=== PATIENT | female | born 1985 | race Two or more races ===

== ENCOUNTER 2017-03-03 07:38 | Outpatient (CLI) | payer MEDICAID ==
[2017-03-03 08:30] LABS: APPEARANCE,URINE CLEAR; BILIRUBIN,URINE NEGATIVE (NEGATIVE); GLUCOSE, URINE NEGATIVE (NEGATIVE); KETONES,URINE NEGATIVE (NEGATIVE); LEUKOCYTE ESTERASE,URINE NEGATIVE (NEGATIVE); NITRITE,URINE NEGATIVE (NEGATIVE); PROTEIN,URINE NEGATIVE (NEGATIVE); UROBILINOGEN,URINE NEGATIVE mg/dL (<2.0)
[2017-03-03 08:45] LABS: URINE BARBITURATES SCREEN NEGATIVE; URINE METHADONE SCREEN NEGATIVE; URINE OPIATES LOW NEGATIVE; URINE PHENCYCLIDINE SCREEN NEGATIVE
--- NOTE | 2017-03-03 10:04 | RADIOLOGY REPORT (SQ) ---
EXAM DESCRIPTION: U/S OB 14+ TRNABD 1GES W/O DOP COMPLETED DATE/TIME: 03/03/2017 9:53 am REASON FOR STUDY: complete OB, CL, dates, corrine scan, placenta loc COMPARISON: None. TECHNIQUE: Static and Dynamic grayscale imaging performed of gravid uterus using transabdominal appr oach. Additional selected color Doppler and spectral images recorded. All stored on PACS. LIMITATIONS: None. FINDINGS: EGA: 21 week 3 day TERRY: 07/11/2017 EFW: 435 grams PERCENTILE: Not calculated. IAM: Maximum vertical pocket 5.3 cm. PLACENTA: Posterior low lying without lily previa. Approximately 2.4 cm from the cervical os. No a bruption evident. PRESENTATION: Breech ANATOMY: HEART RATE: 127 beats per minute. FOUR CHAMBER HEART: Visualized. THREE VESSEL CORD: Yes. CORD INSERTION: Visualized. KIDNEYS AND BLADDER: Not well demonstrated. No lily hydronephrosis evident. STOMACH: Visualized. Appears normal. SPINE: Normal as visualized. BRAIN AND LATERAL VENTRICLES: Visualized. Appear normal. OTHER: No other significant finding. MATERNAL ADNEXA: Maternal ovaries not visualized. CERVICAL LENGTH: 3.3 cm. Closed. OTHER: No other significant finding. IMPRESSION: LIVING INTRAUTERINE . ESTIMATED GESTATIONAL AGE 21 weeks 3 days. No visualized anomalies allowing for limited assessment of the kidneys. No previa, placenta looks tenisha rderline low. Trimester of : Second trimester - 13 weeks 1 day to 27 weeks 6 days. TECHNICAL DOCUMENTATION: JOB ID: [id number] [employer]- All Rights Reserved
== END 2017-03-03 10:18 | disposition home or self-care (01) ==
LOC: LC 07:38
PROVIDERS: ATTEND Obstetrics & Gynecology
PROC: 4A1HXCZ Monitoring of Products of Conception, Cardiac Rate, External Approach (ICD-10-PCS; principal; 2017-03-03)
DX: O44.42 Low lying placenta NOS or without hemorrhage, second trimester (principal); Z3A.21 21 weeks gestation of pregnancy
CPT/HCPCS: 76805; 80307; 81001

== ENCOUNTER 2017-05-27 08:51 | Outpatient (CLI) | payer MEDICAID ==
[2017-05-27 09:33] LABS: APPEARANCE,URINE SLIGHTLY-CLOUDY; BILIRUBIN,URINE NEGATIVE (NEGATIVE); GLUCOSE, URINE NEGATIVE (NEGATIVE); KETONES,URINE NEGATIVE (NEGATIVE); LEUKOCYTE ESTERASE,URINE MODERATE (NEGATIVE); NITRITE,URINE NEGATIVE (NEGATIVE); PROTEIN,URINE NEGATIVE (NEGATIVE); URINE SPECIFIC GRAVITY 1.011; UROBILINOGEN,URINE NEGATIVE mg/dL (<2.0)
[2017-05-27 09:36] LABS: AMNISURE (ROM) NEGATIVE (NEGATIVE)
[2017-05-27 09:48] LABS: URINE BARBITURATES SCREEN NEGATIVE; URINE METHADONE SCREEN NEGATIVE; URINE OPIATES LOW NEGATIVE; URINE PHENCYCLIDINE SCREEN NEGATIVE
[2017-05-27 11:55] LABS: CHLAM PCR NOT DETECTED (NOT DETECT)
== END 2017-05-27 14:00 | disposition home or self-care (01) ==
LOC: LC 08:51
PROVIDERS: ATTEND Student in an Organized Health Care Education/Training Program
PROC: 4A1HXCZ Monitoring of Products of Conception, Cardiac Rate, External Approach (ICD-10-PCS; principal; 2017-05-27)
DX: O47.03 False labor before 37 completed weeks of gestation, third trimester (principal); Z3A.33 33 weeks gestation of pregnancy
CPT/HCPCS: 59025; 84112; 81001; 80307; 87491; 87591; G0480 ×2

== ENCOUNTER 2017-08-15 13:48 | Emergency (ER) | payer OTHER, MEDICAID ==
[2017-08-15] MEDS ORDERED: KETOROLAC TROMETHAMINE 10 MG TABLET PO ONE (14:59)
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
[2017-08-15 15:40] VITALS: BP 117/68
== END 2017-08-15 15:59 | disposition home or self-care (01) ==
LOC: ER 13:48
DX: V49.40XA Driver injured in collision with unspecified motor vehicles in traffic accident, initial encounter (principal); M62.830 Muscle spasm of back; S29.012A Strain of muscle and tendon of back wall of thorax, initial encounter
CPT/HCPCS: 99283; J3490

== ENCOUNTER 2018-08-01 02:52 | Outpatient (CLI) | payer MEDICAID ==
[2018-08-01] MEDS ORDERED: ACETAMINOPHEN 325 MG TABLET ONE (03:36)
[2018-08-01 03:39] LABS: APPEARANCE,URINE CLOUDY; BILIRUBIN,URINE NEGATIVE (NEGATIVE); COLOR,URINE YELLOW; GLUCOSE, URINE NEGATIVE (NEGATIVE); KETONES,URINE NEGATIVE (NEGATIVE); LEUKOCYTE ESTERASE,URINE NEGATIVE (NEGATIVE); NITRITE,URINE NEGATIVE (NEGATIVE); PROTEIN,URINE NEGATIVE (NEGATIVE); URINE SPECIFIC GRAVITY 1.011; UROBILINOGEN,URINE NEGATIVE mg/dL (<2.0)
[2018-08-01 03:49] LABS: URINE AMPHETAMINES SCREEN NEGATIVE; URINE BARBITURATES SCREEN NEGATIVE; URINE BENZODIAZEPINES SCREEN NEGATIVE; URINE COCAINE SCREEN NEGATIVE; URINE METHADONE SCREEN NEGATIVE; URINE PHENCYCLIDINE SCREEN NEGATIVE
[2018-08-01 03:54] LABS: URINE MARIJUANA (THC) SCREEN UNCONFIRMED POSITIVE
[2018-08-01] MEDS ORDERED: CEFTRIAXONE INJ 1000 MG VIAL IM ONE (04:08)
[2018-08-01] MEDS ORDERED: LIDOCAINE 1% INJ-PF (10 MG/ML) 30 ML SDV INJ ONE (04:08)
[2018-08-01] MEDS ORDERED: CEFTRIAXONE INJ 1000 MG VIAL ONE (04:14)
[2018-08-01] MEDS ORDERED: LIDOCAINE 1% INJ-PF (10 MG/ML) 30 ML SDV ONE (04:14)
--- NOTE | 2018-08-01 05:24 | Non Stress Test Report ---
Non Stress Test Datetime Report Generated by CPN: 08/01/2018 05:24 DEMOGRAPHIC Test Number: 1 EGA NST: 34.4 INDICATION Indication for Study: Ordered by Provider URINE RESULTS Urine Protein, NST: Negative Urine Ketones - NST: Negative Urine Glucose - NST: Negative Urine Blood - NST: Positive MONITORING Monitor Explained: Monitor Explained; Test Explained; Patient Verbalized Understanding Time on Monitor: 08/01/2018 04:30 Time off Monitor: 08/01/2018 05:05 NST Duration: 35 NST INTERVENTIONS NST Interventions: PO Hydration; Reposition Patient; Vibroacoustic Stim Physician Notified NST: Dr. Gamboa BABY A: [id number] BABY A Movement : Present Contraction Frequency : x2 FHR Baseline : 135 Accelerations : 15X15 Decelerations : None Variability : Moderate 6-25bpm NST Review: Meets Criteria for Reactive NST NST Review and Verified By : JOJO Estrella NST Results: Reactive NST REPORT Report Trigger: Send Report
== END 2018-08-01 05:13 | disposition home or self-care (01) ==
LOC: ER 02:52 → LC 05:13
PROVIDERS: ATTEND Obstetrics & Gynecology Gynecology
PROC: 4A1HXCZ Monitoring of Products of Conception, Cardiac Rate, External Approach (ICD-10-PCS; principal; 2018-08-01)
DX: O47.03 False labor before 37 completed weeks of gestation, third trimester (principal); O23.43 Unspecified infection of urinary tract in pregnancy, third trimester; Z3A.34 34 weeks gestation of pregnancy
CPT/HCPCS: 59025; 81001; 80307; G0480 ×2; J3490 ×2; J0696; 80349

== ENCOUNTER 2018-08-03 08:16 | Inpatient (IN) | payer MEDICAID ==
[2018-08-03] MEDS ORDERED: ONDANSETRON HCL INJ/PF 4 MG/2 ML SDV IV PRN (08:55)
[2018-08-03 09:16] LABS: APPEARANCE,URINE SLIGHTLY-CLOUDY; BILIRUBIN,URINE NEGATIVE (NEGATIVE); COLOR,URINE YELLOW; GLUCOSE, URINE NEGATIVE (NEGATIVE); KETONES,URINE 20 mg/dL (NEGATIVE); LEUKOCYTE ESTERASE,URINE NEGATIVE (NEGATIVE); NITRITE,URINE NEGATIVE (NEGATIVE); PROTEIN,URINE NEGATIVE (NEGATIVE); URINE SPECIFIC GRAVITY 1.011; UROBILINOGEN,URINE NEGATIVE mg/dL (<2.0)
[2018-08-03] MEDS ORDERED: PROMETHAZINE HCL INJ 25 MG/1 ML VIAL ONE (09:19)
[2018-08-03] MEDS ORDERED: CEFTRIAXONE INJ 1000 MG VIAL ONE (09:19)
[2018-08-03] MEDS ORDERED: NALBUPHINE HCL INJ 10 MG/1 ML AMPULE ONE (09:19)
[2018-08-03] MEDS ORDERED: NALBUPHINE HCL INJ 10 MG/1 ML AMPULE INJ ONE ×2 (09:25→09:26)
[2018-08-03] MEDS ORDERED: PROMETHAZINE HCL INJ 25 MG/1 ML VIAL IV ONE ×2 (09:25→09:27)
[2018-08-03 09:27] LABS: URINE AMPHETAMINES SCREEN NEGATIVE; URINE BARBITURATES SCREEN NEGATIVE; URINE BENZODIAZEPINES SCREEN NEGATIVE; URINE COCAINE SCREEN NEGATIVE; URINE METHADONE SCREEN NEGATIVE; URINE PHENCYCLIDINE SCREEN NEGATIVE
[2018-08-03 09:37] LABS: URINE MARIJUANA (THC) SCREEN UNCONFIRMED POSITIVE
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
[2018-08-03 10:46] LABS: HEMATOCRIT 29.1 % (36.0-47.0); HEMOGLOBIN 10.3 g/dL (12.0-15.5); MEAN CORPUSCULAR HEMOGLOBIN 33.4 pg (27.0-33.4); MEAN CORPUSCULAR HGB CONC 35.5 g/dL (32.0-36.0); MEAN CORPUSCULAR VOLUME 94 fl (80-97); PLATELET COUNT 264 10^3/uL (150-450); WHITE BLOOD COUNT 2.5 10^3/uL (4.0-10.5)
[2018-08-03 10:55] LABS: ALANINE AMINOTRANSFERASE 31 U/L (9-52); ALBUMIN 3.4 g/dL (3.5-5.0); ALKALINE PHOSPHATASE 159 U/L (38-126); ANION GAP 10 (5-19); ASPARTATE AMINO TRANSFERASE 34 U/L (14-36); BILIRUBIN,DIRECT 0.2 mg/dL (0.0-0.4); BILIRUBIN,TOTAL 0.4 mg/dL (0.2-1.3); BLOOD UREA NITROGEN 12 mg/dL (7-20); CALCIUM 8.5 mg/dL (8.4-10.2); CARBON DIOXIDE 21 mmol/L (22-30); CHLORIDE 104 mmol/L (98-107); GLUCOSE 77 mg/dL (75-110); SODIUM 135.3 mmol/L (137-145); TOTAL PROTEIN 6.4 g/dL (6.3-8.2)
[2018-08-03 11:09] LABS: ABSOLUTE LYMPHOCYTES# (MANUAL) 1.6 10^3/uL (0.5-4.7); ABSOLUTE MONOCYTES # (MANUAL) 0.5 10^3/uL (0.1-1.4); ABSOLUTE NEUTROPHILS# (MANUAL) 0.3 10^3/uL (1.7-8.2); BASOPHILS % (MANUAL) 0 % (0-2); EOSINOPHILS % (MANUAL) 3 % (0-6); MONOCYTES % (MANUAL) 19 % (3-13); SEGMENTED NEUTROPHILS % (MAN) 13 % (42-78); TOTAL CELLS COUNTED 100
[2018-08-03 11:10] LABS: PLATELET COMMENT ADEQUATE; POLYCHROMASIA SLIGHT
[2018-08-03 11:11] LABS: LYMPHOCYTES % (MANUAL) 65 % (13-45)
[2018-08-03] MEDS: RINGERS SOLUTION,LACTATED 1,000 ML IV PRN ×2 (14:51→21:54)
[2018-08-03] MEDS: CEFTRIAXONE 1 GM/D5W RTU 1 GM/50 ML RTUPB IV SCH ×2 (14:52→21:54)
[2018-08-03] MEDS: ACETAMINOPHEN 325 MG TABLET PO PRN (17:39)
[2018-08-03] MEDS ORDERED: FAMOTIDINE 20 MG TABLET PO PRN (21:25)
[2018-08-03] MEDS: PROMETHAZINE HCL 25 MG TABLET PO PRN (21:57)
[2018-08-04] MEDS: ACETAMINOPHEN 325 MG TABLET PO PRN (00:11)
[2018-08-04] MEDS: OXYCODONE-ACETAMINOPHEN 5-325 MG TABLET PO PRN ×5 (00:50→23:46)
[2018-08-04] MEDS: RINGERS SOLUTION,LACTATED 1,000 ML IV PRN ×3 (06:11→23:49)
[2018-08-04] MEDS: PROMETHAZINE HCL 25 MG TABLET PO PRN ×3 (06:13→22:24)
[2018-08-04 06:24] LABS: HEMATOCRIT 28.9 % (36.0-47.0); HEMOGLOBIN 10.1 g/dL (12.0-15.5); MEAN CORPUSCULAR HEMOGLOBIN 32.9 pg (27.0-33.4); MEAN CORPUSCULAR HGB CONC 34.9 g/dL (32.0-36.0); MEAN CORPUSCULAR VOLUME 94 fl (80-97); PLATELET COUNT 248 10^3/uL (150-450); RED BLOOD COUNT 3.07 10^6/uL (3.72-5.28); RED CELL DISTRIBUTION WIDTH 13.4 % (11.5-14.0); WHITE BLOOD COUNT 3.1 10^3/uL (4.0-10.5)
[2018-08-04 07:00] LABS: ABSOLUTE LYMPHOCYTES# (MANUAL) 1.7 10^3/uL (0.5-4.7); ABSOLUTE NEUTROPHILS# (MANUAL) 0.3 10^3/uL (1.7-8.2); BASOPHILS % (MANUAL) 0 % (0-2); EOSINOPHILS % (MANUAL) 2 % (0-6); LYMPHOCYTES % (MANUAL) 56 % (13-45); MONOCYTES % (MANUAL) 31 % (3-13); SEGMENTED NEUTROPHILS % (MAN) 11 % (42-78); TOTAL CELLS COUNTED 100
[2018-08-04 07:04] LABS: OVALOCYTES SLIGHT; PLATELET COMMENT ADEQUATE; POIKILOCYTOSIS SLIGHT; TARGET CELLS SLIGHT
[2018-08-04] MEDS: CEFTRIAXONE 1 GM/D5W RTU 1 GM/50 ML RTUPB IV SCH ×2 (09:13→22:20)
[2018-08-04] MEDS ORDERED: PROMETHAZINE HCL 25 MG TABLET PO ONE (10:00)
--- NOTE | 2018-08-04 10:22 | PDOC PROGRESS REPORT ---
Subjective Progress Note for:: 08/04/18 Reason For Visit: UTI WITH @ 35 wks. Physical Exam - Physical Exam Vital Signs: Temp Pulse Resp BP Pulse Ox 97.6 F 86 16 116/75 100 08/04/18 07:46 08/04/18 07:46 08/04/18 07:46 08/04/18 07:46 08/04/18 07:46 Intake & Output 08/03/18 08/04/18 08/05/18 06:59 06:59 06:59 Intake Total 2231 Output Total 1350 Balance 881 Weight 53.3 kg General appearance: PRESENT: no acute distress, cooperative - no CVA tenderness at this time. - Obstetrical Exam Fundal Height: 3/u - 4/u Tender: No Result Laboratory Results: 08/04/18 05:54 08/03/18 09:44 08/03/18 08/03/18 08/04/18 09:44 09:44 05:54 WBC 2.5 L 3.1 L RBC 3.10 L 3.07 L Hgb 10.3 L 10.1 L Hct 29.1 L 28.9 L MCV 94 94 MCH 33.4 32.9 MCHC 35.5 34.9 RDW 13.0 13.4 Plt Count 264 248 Seg Neutrophils % Not Reportable Not Reportable Lymphocytes % Not Reportable Not Reportable Monocytes % Not Reportable Not Reportable Eosinophils % Not Reportable Not Reportable Basophils % Not Reportable Not Reportable Absolute Neutrophils Not Reportable Not Reportable Absolute Lymphocytes Not Reportable Not Reportable Absolute Monocytes Not Reportable Not Reportable Absolute Eosinophils Not Reportable Not Reportable Absolute Basophils Not Reportable Not Reportable Sodium 135.3 L Potassium 4.0 Chloride 104 Carbon Dioxide 21 L Anion Gap 10 BUN 12 Creatinine 0.79 Est GFR ( Amer) > 60 Est GFR (Non-Af Amer) > 60 Glucose 77 Calcium 8.5 Total Bilirubin 0.4 AST 34 ALT 31 Alkaline Phosphatase 159 H Total Protein 6.4 Albumin 3.4 L Assessment & Plan - Diagnosis (1) Qualifiers: Weeks of gestation: 35 weeks Qualified Code(s): Z3A.35 - 35 weeks gestation of Is this a current diagnosis for this admission?: Yes (2) Urinary tract infection affecting care of mother in third trimester, antepartum Is this a current diagnosis for this admission?: Yes - Time Time Spent with patient: Less than 15 minutes Medications reviewed and adjusted accordingly: Yes Anticipated discharge: Home Within: within 24 hours - Inpatient Certification Based on my medical assessment, after consideration of the patient's comorbidities, presenting symptoms, or acuity I expect that the services needed warrant INPATIENT care.: Yes I certify that my determination is in accordance with my understanding of Medicare's requirements for reasonable and necessary INPATIENT services [42 CFR 412.3e].: Yes Medical Necessity: Need For IV Fluids, Need for IV Antibiotics - Plan Summary Plan Summary: d/w pt that in light of minimal clinical signs (i.e low WBC and no growth on urine culture) that would recommend discharge perhaps this afternoon after rechecking a CBC. Pt indicates that Phenergan helps with antibiotic tolerance. Explained that the somnolence affect of phenergan is not ideal in . Will discharge with prophylactic Macrobid if labs continue to be reassuring.
[2018-08-04 15:45] LABS: PATH REVIEW PATHOLOGIST REVIEWED
[2018-08-04 18:34] LABS: HEMATOCRIT 28.5 % (36.0-47.0); HEMOGLOBIN 9.9 g/dL (12.0-15.5); MEAN CORPUSCULAR HEMOGLOBIN 32.8 pg (27.0-33.4); MEAN CORPUSCULAR HGB CONC 34.9 g/dL (32.0-36.0); MEAN CORPUSCULAR VOLUME 94 fl (80-97); PLATELET COUNT 284 10^3/uL (150-450); RED BLOOD COUNT 3.03 10^6/uL (3.72-5.28); WHITE BLOOD COUNT 3.2 10^3/uL (4.0-10.5)
[2018-08-04 19:06] LABS: ABSOLUTE MONOCYTES # (MANUAL) 0.5 10^3/uL (0.1-1.4); ABSOLUTE NEUTROPHILS# (MANUAL) 0.5 10^3/uL (1.7-8.2); BASOPHILS % (MANUAL) 1 % (0-2); EOSINOPHILS % (MANUAL) 3 % (0-6); LYMPHOCYTES % (MANUAL) 63 % (13-45); MONOCYTES % (MANUAL) 16 % (3-13); PLATELET COMMENT ADEQUATE; SEGMENTED NEUTROPHILS % (MAN) 17 % (42-78); TOTAL CELLS COUNTED 100
[2018-08-05] MEDS: RINGERS SOLUTION,LACTATED 1,000 ML IV PRN (07:55)
[2018-08-05] MEDS: PROMETHAZINE HCL 25 MG TABLET PO PRN (07:55)
[2018-08-05] MEDS: OXYCODONE-ACETAMINOPHEN 5-325 MG TABLET PO PRN ×2 (07:56→14:09)
[2018-08-05] MEDS: CEFTRIAXONE 1 GM/D5W RTU 1 GM/50 ML RTUPB IV SCH (09:04)
--- NOTE | 2018-08-05 11:31 | PDOC PROGRESS REPORT ---
Subjective Progress Note for:: 08/05/18 Subjective:: pt admitted for suspected complicated UTI in at approx 35wks Reason For Visit: UTI WITH Physical Exam - Physical Exam Vital Signs: Temp Pulse Resp BP Pulse Ox 97.7 F 73 16 116/73 100 08/05/18 07:24 08/05/18 07:24 08/05/18 07:24 08/05/18 07:24 08/05/18 07:24 Intake & Output 08/04/18 08/05/18 08/06/18 06:59 06:59 06:59 Intake Total 2231 3998 1050 Output Total 1350 2100 Balance 881 1898 1050 Weight 53.3 kg General appearance: PRESENT: no acute distress Head exam: PRESENT: atraumatic, normocephalic Respiratory exam: PRESENT: clear to auscultation stewart, symmetrical, unlabored Cardiovascular exam: PRESENT: RRR. ABSENT: diastolic murmur, rubs, systolic murmur GI/Abdominal exam: PRESENT: normal bowel sounds, soft. ABSENT: distended, guarding, mass, organolmegaly, rebound, tenderness Rectal exam: PRESENT: deferred Musculoskeletal exam: PRESENT: ambulatory - ambulating in room upon evaluation Neurological exam: PRESENT: alert, awake, oriented to person, oriented to place, oriented to time, oriented to situation, CN II-XII grossly intact. ABSENT: motor sensory deficit Result Laboratory Results: 08/04/18 18:20 08/03/18 09:44 08/04/18 18:20 WBC 3.2 L RBC 3.03 L Hgb 9.9 L Hct 28.5 L MCV 94 MCH 32.8 MCHC 34.9 RDW 13.0 Plt Count 284 Seg Neutrophils % Not Reportable Lymphocytes % Not Reportable Monocytes % Not Reportable Eosinophils % Not Reportable Basophils % Not Reportable Absolute Neutrophils Not Reportable Absolute Lymphocytes Not Reportable Absolute Monocytes Not Reportable Absolute Eosinophils Not Reportable Absolute Basophils Not Reportable 08/03/18 08:52 Clean Catch Midstream Urine Culture - Final NO GROWTH 2 DAYS Status: Imported from PACS Assessment & Plan - Diagnosis (1) Qualifiers: Weeks of gestation: 35 weeks Qualified Code(s): Z3A.35 - 35 weeks gestation of Is this a current diagnosis for this admission?: Yes Plan: No e/o UTI at this time. Urine culture negative. However recieved abx since admission. Will give macrobid nightly until delivery. T#3 given #10 and phenergan given. at discharge. Reactive NSTs. F/u in the office this week. - Time Time Spent with patient: Less than 15 minutes Medications reviewed and adjusted accordingly: Yes Anticipated discharge: Home Within: within 24 hours - Inpatient Certification Based on my medical assessment, after consideration of the patient's comorbidities, presenting symptoms, or acuity I expect that the services needed warrant INPATIENT care.: No I certify that my determination is in accordance with my understanding of Medicare's requirements for reasonable and necessary INPATIENT services [42 CFR 412.3e].: No
--- NOTE | 2018-08-05 12:09 | PDOC DISCHARGE SUMMARY ---
General - Admit/Disc Date/PCP Admission Date/Primary Care Provider: 08/03/18 08:50 Discharge Date: 08/03/18 - Discharge Diagnosis (1) Is this a current diagnosis for this admission?: Yes Summary: 35wks with possible complicated UTI vs nephrolithiasis - Additional Information Discharge Diet: As Tolerated Discharge Activity: Activity As Tolerated, Pelvic Rest Prescriptions: RX: Promethazine HCl [Phenergan 25 mg Tablet] 25 mg PO Q6HP PRN #15 tablet PRN Reason: For Nausea/Vomiting Home Medications: RX: No.116/Iron/Folic/Dha [Expecta Combo Pack] 1 tab PO DAILY 03/03/17 RX: Ferrous Sulfate [Iron] 325 mg PO DAILY 08/03/18 RX: Acetaminophen [Tylenol 325 mg Tablet] 650 mg PO Q6HP PRN tablet 08/05/18 RX: Famotidine [Pepcid 20 mg Tablet] 20 mg PO BIDP PRN tablet 08/05/18 RX: Promethazine HCl [Phenergan 25 mg Tablet] 25 mg PO Q6HP PRN #15 tablet 08/05/18 History of Present Illness Patient complains of: back pain, 35wks History of Present Illness: JULIANN CAMPA is a 32 year old female Hospital Course Hospital Course: admitted for suspected comlicated UTI at 35wks and given Rocephin for abx. Now feeling better and afebrile. Meets criteria for discharge Physical Exam - Physical Exam Vital Signs: Temp Pulse Resp BP Pulse Ox 97.7 F 73 16 116/73 100 08/05/18 07:24 08/05/18 07:24 08/05/18 07:24 08/05/18 07:24 08/05/18 07:24 Intake & Output 08/04/18 08/05/18 08/06/18 06:59 06:59 06:59 Intake Total 2231 3998 1050 Output Total 1350 2100 Balance 881 1898 1050 Weight 53.3 kg General appearance: PRESENT: no acute distress, well-developed, well-nourished Head exam: PRESENT: atraumatic, normocephalic Respiratory exam: PRESENT: clear to auscultation stewart, symmetrical Cardiovascular exam: PRESENT: RRR. ABSENT: diastolic murmur, rubs, systolic murmur GI/Abdominal exam: PRESENT: normal bowel sounds, soft. ABSENT: distended, guarding, mass, organolmegaly, rebound, tenderness Rectal exam: PRESENT: deferred Extremities exam: PRESENT: full ROM. ABSENT: calf tenderness, clubbing, pedal e cass Neurological exam: PRESENT: alert, awake, oriented to person, oriented to place, oriented to time, oriented to situation, CN II-XII grossly intact. ABSENT: motor sensory deficit Psychiatric exam: PRESENT: appropriate affect, normal mood. ABSENT: homicidal ideation, suicidal ideation Skin exam: PRESENT: dry, intact, warm. ABSENT: cyanosis, rash Result Laboratory Results: 08/04/18 18:20 08/03/18 09:44 08/04/18 18:20 WBC 3.2 L RBC 3.03 L Hgb 9.9 L Hct 28.5 L MCV 94 MCH 32.8 MCHC 34.9 RDW 13.0 Plt Count 284 Seg Neutrophils % Not Reportable Lymphocytes % Not Reportable Monocytes % Not Reportable Eosinophils % Not Reportable Basophils % Not Reportable Absolute Neutrophils Not Reportable Absolute Lymphocytes Not Reportable Absolute Monocytes Not Reportable Absolute Eosinophils Not Reportable Absolute Basophils Not Reportable 08/03/18 08:52 Clean Catch Midstream Urine Culture - Final NO GROWTH 2 DAYS Plan Discharge Plan: Discharge to home with f/u at [facility]
[2018-08-05 14:42] VITALS: BP 114/67
== END 2018-08-05 16:47 | disposition home or self-care (01) | DRG 833 ==
LOC: LC 08:16 → LR 08:50 → 2S 16:30
PROVIDERS: ADMIT Obstetrics & Gynecology; ATTEND Obstetrics & Gynecology
PROC: 4A1HXCZ Monitoring of Products of Conception, Cardiac Rate, External Approach (ICD-10-PCS; principal; 2018-08-03)
DX: O23.43 Unspecified infection of urinary tract in pregnancy, third trimester (principal); O99.333 Smoking (tobacco) complicating pregnancy, third trimester; F17.210 Nicotine dependence, cigarettes, uncomplicated; N20.0 Calculus of kidney; O26.893 Other specified pregnancy related conditions, third trimester; Z88.2 Allergy status to sulfonamides; Z3A.35 35 weeks gestation of pregnancy
CPT/HCPCS: 36415; 59025; 80053; 80307; 81001; 85025; 87086; J0696; J2300; J2550; J7120

== ENCOUNTER 2018-08-25 16:20 | Inpatient (IN) | payer MEDICAID ==
--- NOTE | 2018-08-25 16:26 | Non Stress Test Report ---
Non Stress Test Datetime Report Generated by CPN: 08/25/2018 16:26 DEMOGRAPHIC EGA NST: 34.6 INDICATION Indication for Study: Ordered by Provider MONITORING Monitor Explained: Monitor Explained; Test Explained; Patient Verbalized Understanding Time on Monitor: 08/03/2018 08:40 Time off Monitor: 08/03/2018 09:45 NST Duration: 65 NST INTERVENTIONS NST Interventions: None Physician Notified NST: Dr Sanchez BABY A: [id number] BABY A Movement : Present Contraction Frequency : irregular FHR Baseline : 145 Accelerations : 15X15 Decelerations : None Variability : Moderate 6-25bpm NST Review: Meets Criteria for Reactive NST NST Review and Verified By : Brendon Tapia RN NST Results: Reactive NST Results: Reactive NST REPORT Report Trigger: Send Report
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
[2018-08-25 17:20] LABS: APPEARANCE,URINE CLEAR; BILIRUBIN,URINE NEGATIVE (NEGATIVE); COLOR,URINE STRAW; GLUCOSE, URINE NEGATIVE (NEGATIVE); KETONES,URINE NEGATIVE (NEGATIVE); LEUKOCYTE ESTERASE,URINE NEGATIVE (NEGATIVE); NITRITE,URINE NEGATIVE (NEGATIVE); PROTEIN,URINE NEGATIVE (NEGATIVE); URINE SPECIFIC GRAVITY 1.005; UROBILINOGEN,URINE NEGATIVE mg/dL (<2.0)
[2018-08-25] MEDS ORDERED: OXYTOCIN/NORMAL SALINE 20 UNIT/1,000 ML RTUINJ IV PRN (17:20)
[2018-08-25] MEDS ORDERED: RINGERS SOLUTION,LACTATED 300 ML IV ONE (17:20)
[2018-08-25] MEDS ORDERED: RINGERS SOLUTION,LACTATED 1,000 ML IV PRN (17:20)
[2018-08-25] MEDS ORDERED: PENICILLIN G POTASSIUM 5,000,000 UNIT in DEXTROSE 5%-WATER 100 ML IV ONE (17:24)
[2018-08-25] MEDS ORDERED: PENICILLIN G-K 5 MILLION UNIT VIAL ONE ×2 (17:45→22:01)
[2018-08-25 17:54] LABS: URINE AMPHETAMINES SCREEN NEGATIVE; URINE BARBITURATES SCREEN NEGATIVE; URINE BENZODIAZEPINES SCREEN NEGATIVE; URINE COCAINE SCREEN NEGATIVE; URINE METHADONE SCREEN NEGATIVE; URINE PHENCYCLIDINE SCREEN NEGATIVE
[2018-08-25 18:02] LABS: URINE MARIJUANA (THC) SCREEN UNCONFIRMED POSITIVE
[2018-08-25 18:42] LABS: ABSOLUTE LYMPHOCYTES (AUTO) 1.7 10^3/uL (0.5-4.7); ABSOLUTE MONOCYTES (AUTO) 0.6 10^3/uL (0.1-1.4); ABSOLUTE NEUT (AUTO) 7.1 10^3/uL (1.7-8.2); BASOPHILS % (AUTO) 0.3 % (0-2); EOSINOPHILS % (AUTO) 0.5 % (0-6); HEMATOCRIT 29.4 % (36.0-47.0); HEMOGLOBIN 10.2 g/dL (12.0-15.5); LYMPHOCYTES % (AUTO) 17.8 % (13-45); MEAN CORPUSCULAR HEMOGLOBIN 32.8 pg (27.0-33.4); MEAN CORPUSCULAR HGB CONC 34.8 g/dL (32.0-36.0); MEAN CORPUSCULAR VOLUME 94 fl (80-97); PLATELET COUNT 263 10^3/uL (150-450); RED BLOOD COUNT 3.12 10^6/uL (3.72-5.28); RED CELL DISTRIBUTION WIDTH 13.3 % (11.5-14.0); SEGMENTED NEUTROPHILS % (AUTO) 75.4 % (42-78); TOTAL CELLS COUNTED % (AUTO) 100 %; WHITE BLOOD COUNT 9.4 10^3/uL (4.0-10.5)
[2018-08-25] MEDS ORDERED: EPHEDRINE SULFATE INJ 50 MG/1 ML AMPULE ONE (18:53)
[2018-08-25] MEDS ORDERED: FENTANYL/BUPIVACAINE/NS/PF 300 MCG/150 ML RTUINJ EPI ONE (18:53)
[2018-08-25] MEDS ORDERED: BUPIVACAINE HCL 0.25 % INJ/PF (2.5 MG/1 ML) 30 ML VIAL ONE (18:54)
[2018-08-25] MEDS ORDERED: ONDANSETRON HCL INJ/PF 4 MG/2 ML SDV IV ONE (20:04)
[2018-08-25] MEDS ORDERED: ONDANSETRON HCL INJ/PF 4 MG/2 ML SDV ONE (20:07)
[2018-08-25] MEDS ORDERED: OXYTOCIN 10 UNIT/ML VIAL ONE (20:45)
[2018-08-25] MEDS ORDERED: OXYTOCIN/NORMAL SALINE 20 UNIT/1,000 ML RTUINJ ONE (20:45)
[2018-08-25] MEDS ORDERED: MISOPROSTOL 0.2 MG TABLET ONE (20:45)
[2018-08-25] MEDS ORDERED: LIDOCAINE 1% INJ-PF (10 MG/ML) 30 ML SDV ONE (20:45)
[2018-08-25] MEDS: PENICILLIN G POTASSIUM 2,500,000 UNIT in DEXTROSE 5%-WATER 50 ML IV SCH (22:00)
[2018-08-26] MEDS ORDERED: MAGNESIUM HYDROXIDE SUSP 30 ML UDCUP PO PRN (01:07)
[2018-08-26] MEDS ORDERED: ZOLPIDEM TARTRATE 5 MG TABLET PO PRN (01:07)
[2018-08-26] MEDS ORDERED: MEASLES,MUMPS&RUBELLA VACC/PF 0.5 ML VIAL SUBCUT PRN (01:07)
[2018-08-26] MEDS ORDERED: GLYCERIN/WITCH HAZEL LEAF 1 EACH MED..PAD TP PRN (01:07)
[2018-08-26] MEDS ORDERED: PSEUDOEPHEDRINE HCL 30 MG TABLET PO PRN (01:07)
[2018-08-26] MEDS ORDERED: OXYTOCIN/NORMAL SALINE 20 UNIT/1,000 ML RTUINJ IV PRN (01:07)
[2018-08-26] MEDS ORDERED: DIPH/PERTUSS(ACELL)/TETANUS VAC/PF 0.5 ML SYR (>=10YO) IM PRN (01:07)
[2018-08-26] MEDS ORDERED: DIBUCAINE 1% OINTMENT 28 GM TP PRN (01:07)
[2018-08-26] MEDS ORDERED: ACETAMINOPHEN WITH CODEINE #3 TABLET PO PRN (01:07)
[2018-08-26] MEDS ORDERED: DIPHENHYDRAMINE HCL 25 MG CAPSULE PO PRN (01:07)
[2018-08-26] MEDS ORDERED: NA PHOS,M-B/NA PHOS,DI-BA (ADULT) 133 ML ENEMA PR PRN (01:07)
[2018-08-26] MEDS ORDERED: ACETAMINOPHEN 650 MG SUPP.RECT PR PRN (01:07)
[2018-08-26] MEDS ORDERED: PROMETHAZINE HCL INJ 25 MG/1 ML VIAL IV PRN (01:07)
[2018-08-26] MEDS ORDERED: BENZOCAINE/MENTHOL AEROSOL SPRAY 56 ML TOP PRN (01:07)
[2018-08-26] MEDS ORDERED: PROMETHAZINE HCL 25 MG SUPP.RECT PR PRN (01:07)
[2018-08-26] MEDS ORDERED: IBUPROFEN 800 MG TABLET PO ONE (01:30)
[2018-08-26] MEDS ORDERED: IBUPROFEN 800 MG TABLET ONE (02:19)
[2018-08-26] MEDS ORDERED: ACETAMINOPHEN WITH CODEINE #3 TABLET ONE (03:46)
[2018-08-26] MEDS: ACETAMINOPHEN WITH CODEINE #3 TABLET PO PRN ×4 (03:48→20:17)
--- NOTE | 2018-08-26 04:42 | Delivery Summary ---
Del Sum A-C Datetime Report Generated by CPN: 08/26/2018 04:42 DELIVERY PERSONNEL DELIVERY PERSONNEL: [id number] Delivery Doctor:: Khang Sanchez MD Labor and Delivery Nurse:: Jenelle Jovel RNpsychometric examiner Nurse:: Brittani Carrillo, RN Slurry Tank Operator/INFORMATION SYSTEMS TECHNICIAN: Terry Ertel, INFORMATION SYSTEMS TECHNICIAN MATERNAL INFORMATION Delivery Anesthesia: Epidural Medications After Delivery: Pitocin Drip 20 Units/1000ml NSS Estimated Blood Loss (ml): 250 LABOR SUMMARY EDC: 09/08/2018 00:00 No. Babies in Womb: 1 Attempted: No Labor Anesthesia: Epidural LABOR INFORMATION Reason for Induction: Not Applicable Onset of Labor: 08/25/2018 11:00 Complete Dilatation: 08/26/2018 01:14 Oxytocin: Augmentation Group B Beta Strep: POSITIVE Antibiotics # of Doses: 2 Antibiotics Time of Last Dose: 2200 Name of Antibiotic Given: penicillin Steroids Given: None Reason Steroids Not Administered: Not Applicable MEMBRANES Membranes Rupture Method: Spontaneous Rupture of Membranes: 08/25/2018 06:00 Length of Rupture (hr): 19.63 Amniotic Fluid Color: Clear Amniotic Fluid Amount: None Amniotic Fluid Odor: Normal STAGES OF LABOR Stage 1 hr: 14 Stage 1 min: 14 Stage 2 hr: 0 Stage 2 min: 24 Stage 3 hr: 0 Stage 3 min: 3 Total Time in Labor hr: 14 Total Time in Labor min: 41 VAGINAL DELIVERY Episiotomy: None Laceration #1: None Laceration Extension #1: N/A Laceration Repair: Not Applicable Sponge Count Correct: Vaginal Sweep Performed Sharps Count Correct: Yes CSECTION DELIVERY Primary Indication: N/A Secondary Indication: N/A CSection Incidence: N/A Labor: N/A Elective: N/A CSection Incision: N/A BABY A INFORMATION Delivery Date/Time: 08/26/2018 01:38 Method of Delivery: Vaginal Born in Route : No : N/A Forceps: N/A Vacuum Extraction: N/A Shoulder Dystocia : No PRESENTATION/POSITION BABY A Presentation: Cephalic Cephalic Presentation: Vertex Vertex Position: Right Occipital Anterior Breech Presentation: N/A PLACENTA INFORMATION BABY A Placenta Delivery Time : 08/26/2018 01:41 Placenta Method of Delivery: Spontaneous Placenta Status: Delivered SCORES BABY A Heart Rate 1 min: >100 bpm Resp Effort 1 min: Good Cry Reflex Irritability 1 min: Cough or Sneeze or Pulls Away Muscle Tone 1 min: Active Motion Color 1 min: Blue/Pale Resuscitation Effort 1 min: Tactile Stimulation SCORE 1 MIN: 8 Heart Rate 5 min: >100 bpm Resp Effort 5 min: Good Cry Reflex Irritability 5 min: Cough or Sneeze or Pulls Away Muscle Tone 5 min: Active Motion Color 5 min: Body [place], Extremities Blue Resuscitation Effort 5 min: Tactile Stimulation SCORE 5 MIN: 9 INFORMATION BABY A Gestational Age at Delivery: 38.1 Gestational Status: Early Term- 37- 38.6 Weeks Infant Outcome : Liveborn Infant Condition : Stable Sex: Female IDENTIFICATION BABY A Infant Verification Date/Time: 08/26/2018 02:25 ID Band Number: [id number] Mother's Name Verified: Yes RN Verifying : Lattibyungir RN/ [place] RN WEIGHT/LENGTH BABY A Infant Birthweight (gm): 3130 Infant Weight (lb): 6 Infant Weight (oz): 14 Infant Length (in): 19.00 Infant Length (cm): 48.26 CORD INFORMATION BABY A No. Cord Vessels: 3 Nuchal Cord : Around Neck x1, Loose Cord Blood Taken: Yes-For Eval (Mom's Blood Type - or O+) Infant Suction: Mouth; Nose ASSESSMENT BABY A Infant Complications: None Physical Findings at Delivery: Within Normal Limits Infant Respirations: Appears Normal Skin to Skin: Yes Balance Wheel Hand Filer/ALS Called : No Care By: Elaine Carrillo, RN Transferred To: Remains with Mother BABY B INFORMATION : N/A SIGNATURES Signature: with User ID: [email or web address]
[2018-08-26] MEDS: PENICILLIN G POTASSIUM 2,500,000 UNIT in DEXTROSE 5%-WATER 50 ML IV SCH ×2 (05:06→05:07)
[2018-08-26] MEDS: IBUPROFEN 800 MG TABLET PO SCH ×3 (05:07→22:34)
[2018-08-26] MEDS: FERROUS SULFATE 325 MG TABLET PO SCH ×3 (09:22→17:36)
[2018-08-26] MEDS: PRENATAL VITAMIN W DHA CAPSULE PO SCH (09:22)
[2018-08-26] MEDS: DOCUSATE SODIUM 100 MG CAPSULE PO SCH ×3 (09:22→17:37)
[2018-08-26] MEDS: SENNOSIDES/DOCUSATE 8.6-50 MG 1 EACH TABLET PO SCH (09:22)
[2018-08-26] MEDS: FAMOTIDINE 20 MG TABLET PO SCH ×3 (09:22→22:36)
--- NOTE | 2018-08-26 09:30 | PDOC PROGRESS REPORT ---
Subjective-OB Progress Note for:: 08/26/18 - Delivery Day, pt doing well, no complaints, up to void, . Hx of +THC, + Hepatitis C Physical Exam (OB) Vital Signs: Temp Pulse Resp BP Pulse Ox 98.5 F 81 17 120/70 100 08/26/18 07:53 08/26/18 07:53 08/26/18 07:53 08/26/18 07:53 08/26/18 07:53 Intake & Output 08/25/18 08/26/18 08/27/18 06:59 06:59 06:59 Weight 56.1 kg - General General Appearance: Appears well, Alert In distress: None - PIH/Pre-Eclampsia Clonus: Negative Headache: Absent Epigastric Pain: No Visual Changes: No - Lochia Lochia Amount: Scant < 10 ml Lochia Color: Rubra/Red - Abdomen Description: Soft Hernia Present: No Fundal Description: Firm, Midline Fundal Height: u/u - u/2 - Respiratory Respiratory Status: No respiratory distress - Abdominal Distension: No distension - Genitourinary Genitourinary Note: voiding - Neurological Cognition: Normal Orientation: AAOx4 - Psychological Associated symptoms: Normal affect, Normal mood Objective-Diagnostic Laboratory: 08/25/18 18:25 08/25/18 08/25/18 08/25/18 16:38 18:25 18:25 WBC 9.4 RBC 3.12 L Hgb 10.2 L Hct 29.4 L MCV 94 MCH 32.8 MCHC 34.8 RDW 13.3 Plt Count 263 Seg Neutrophils % 75.4 Lymphocytes % 17.8 Monocytes % 6.0 Eosinophils % 0.5 Basophils % 0.3 Absolute Neutrophils 7.1 Absolute Lymphocytes 1.7 Absolute Monocytes 0.6 Absolute Eosinophils 0.0 Absolute Basophils 0.0 Urine Color STRAW Urine Appearance CLEAR Urine pH 7.0 Ur Specific [place] 1.005 Urine Protein NEGATIVE Urine Glucose (UA) NEGATIVE Urine Ketones NEGATIVE Urine Blood SMALL H Urine Nitrite NEGATIVE Ur Leukocyte Esterase NEGATIVE Blood Type O POSITIVE Antibody Screen NEGATIVE Assessment and Plan(PN) - Assessment and Plan (1) (normal spontaneous vaginal delivery) Is this a current diagnosis for this admission?: Yes (2) Qualifiers: Weeks of gestation: 39 weeks Qualified Code(s): Z3A.39 - 39 weeks gestation of Is this a current diagnosis for this admission?: Yes (3) Urinary tract infection affecting care of mother in third trimester, antepartum Is this a current diagnosis for this admission?: Yes - Time Spent with Patient Time with patient: Less than 15 minutes Medications reviewed and adjusted accordingly: Yes - Disposition Anticipated Discharge: Home Within: within 48 hours
[2018-08-26] MEDS ORDERED: FERROUS SULFATE 325 MG TABLET PO SCH (10:00)
[2018-08-26] MEDS ORDERED: PRENATAL VITAMIN W DHA CAPSULE PO SCH (10:00)
[2018-08-26] MEDS: PROMETHAZINE HCL 25 MG TABLET PO PRN (22:34)
[2018-08-27] MEDS: ACETAMINOPHEN WITH CODEINE #3 TABLET PO PRN ×4 (01:19→16:24)
[2018-08-27] MEDS: IBUPROFEN 800 MG TABLET PO SCH ×3 (05:47→21:02)
[2018-08-27 07:19] LABS: RED BLOOD COUNT 2.91 10^6/uL (3.72-5.28); WHITE BLOOD COUNT 7.4 10^3/uL (4.0-10.5)
[2018-08-27 07:20] LABS: HEMATOCRIT 27.3 % (36.0-47.0); HEMOGLOBIN 9.6 g/dL (12.0-15.5); MEAN CORPUSCULAR HEMOGLOBIN 32.9 pg (27.0-33.4); MEAN CORPUSCULAR HGB CONC 35.1 g/dL (32.0-36.0); MEAN CORPUSCULAR VOLUME 94 fl (80-97); PLATELET COUNT 261 10^3/uL (150-450); RED CELL DISTRIBUTION WIDTH 13.6 % (11.5-14.0)
[2018-08-27] MEDS: FAMOTIDINE 20 MG TABLET PO SCH ×2 (10:06→21:02)
[2018-08-27] MEDS: PRENATAL VITAMIN W DHA CAPSULE PO SCH ×2 (10:06→11:35)
[2018-08-27] MEDS: SENNOSIDES/DOCUSATE 8.6-50 MG 1 EACH TABLET PO SCH (10:06)
[2018-08-27] MEDS: FERROUS SULFATE 325 MG TABLET PO SCH ×3 (11:35→17:13)
[2018-08-27] MEDS: DOCUSATE SODIUM 100 MG CAPSULE PO SCH ×2 (11:35→17:11)
--- NOTE | 2018-08-27 11:55 | PDOC PROGRESS REPORT ---
Addendum entered and electronically signed by CAMILO RIVERA CNM 08/27/18 16:50: Provider Note Provider Note: pt reports she re-started gabapentin for PTSD a couple of weeks ago and has prescription at home. Feels like she needs it right now and asking for medication while in hospital. Discussed with Dr. Castañeda who is agreeable to re- starting today. ordered placed. Pt. asked questions and verbalized understanding when POC was reviewed. Original Note: Subjective-OB Progress Note for:: 08/27/18 Subjective: 32yo G4 now P3 s/p ppd1. Pt. ambulating, and voiding without difficulty. Denies any concerns today. Physical Exam (OB) Vital Signs: Temp Pulse Resp BP Pulse Ox 98.2 F 85 16 118/79 100 08/27/18 09:11 08/27/18 09:11 08/27/18 09:11 08/27/18 09:11 08/27/18 09:11 Intake & Output 08/26/18 08/27/18 08/28/18 06:59 06:59 06:59 Intake Total 400 Balance 400 Weight 56.1 kg - General General Appearance: Appears well In distress: None - PIH/Pre-Eclampsia Clonus: Negative Headache: Absent Epigastric Pain: No Visual Changes: No - Episiotomy/Laceration Site Condition: N/A - Lochia Lochia Amount: Scant < 10 ml Lochia Color: Rubra/Red - Abdomen Description: Soft, Round Hernia Present: No Fundal Description: Firm, Midline Fundal Height: u/u - u/2 - Respiratory Respiratory Status: No respiratory distress - Extremities Upper extremity: Normal inspection Lower extremities: Normal inspection - Neurological Cognition: Normal Orientation: AAOx4 - Psychological Associated symptoms: Normal affect, Normal mood Objective-Diagnostic Laboratory: 08/27/18 06:47 08/27/18 06:47 WBC 7.4 RBC 2.91 L Hgb 9.6 L Hct 27.3 L MCV 94 MCH 32.9 MCHC 35.1 RDW 13.6 Plt Count 261 Assessment and Plan(PN) - Assessment and Plan (1) Anemia complicating , third trimester Is this a current diagnosis for this admission?: Yes Plan: Increase dietary iron and FeSO4 BID. Routine pp care. (2) Qualifiers: Weeks of gestation: 38 weeks Qualified Code(s): Z3A.38 - 38 weeks gestation of Is this a current diagnosis for this admission?: Yes Plan: delivered (3) (normal spontaneous vaginal delivery) Is this a current diagnosis for this admission?: Yes Plan: Routine pp care. Continue to monitor for s/s of infection (4) Drug use affecting Qualifiers: Trimester: unspecified trimester Qualified Code(s): O99.320 - Drug use complicating , unspecified trimester Is this a current diagnosis for this admission?: Yes Plan: discharge planning placed - Time Spent with Patient Time with patient: Less than 15 minutes Smoking Education Provided: Over 3 minutes Medications reviewed and adjusted accordingly: Yes - Disposition Anticipated Discharge: Home Within: within 24 hours
[2018-08-27] MEDS: PROMETHAZINE HCL 25 MG TABLET PO PRN (17:15)
[2018-08-27] MEDS ORDERED: GABAPENTIN 300 MG CAPSULE PO SCH (20:00)
[2018-08-28] MEDS: ACETAMINOPHEN WITH CODEINE #3 TABLET PO PRN ×2 (00:25→07:42)
[2018-08-28] MEDS: IBUPROFEN 800 MG TABLET PO SCH ×2 (05:20→13:27)
[2018-08-28 09:23] VITALS: BP 112/74
[2018-08-28] MEDS: FAMOTIDINE 20 MG TABLET PO SCH (10:29)
[2018-08-28] MEDS: DOCUSATE SODIUM 100 MG CAPSULE PO SCH (10:33)
[2018-08-28] MEDS: SENNOSIDES/DOCUSATE 8.6-50 MG 1 EACH TABLET PO SCH (10:33)
[2018-08-28] MEDS: FERROUS SULFATE 325 MG TABLET PO SCH (10:33)
[2018-08-28] MEDS: PRENATAL VITAMIN W DHA CAPSULE PO SCH (10:33)
--- NOTE | 2018-08-28 11:02 | PDOC PROGRESS REPORT ---
Subjective-OB Progress Note for:: 08/28/18 Subjective: Ready for discharge. Physical Exam (OB) Vital Signs: Temp Pulse Resp BP Pulse Ox 98.0 F 84 15 112/74 100 08/28/18 09:18 08/28/18 09:18 08/28/18 09:18 08/28/18 09:18 08/28/18 09:18 Intake & Output 08/27/18 08/28/18 08/29/18 06:59 06:59 06:59 Intake Total 400 750 Balance 400 750 - PIH/Pre-Eclampsia DTR's: 2 + Clonus: Negative Headache: Absent Epigastric Pain: No Visual Changes: No - Lochia Lochia Amount: Scant < 10 ml Lochia Color: Rubra/Red - Abdomen Description: Soft, Round Hernia Present: No Bowel Sounds: Normoactive Flatus Presence: Present Stool: Yes Fundal Description: Firm, Midline Fundal Height: u/u - u/2 Objective-Diagnostic Laboratory: 08/27/18 06:47 Assessment and Plan(PN) - Time Spent with Patient Smoking Education Provided: Over 3 minutes Medications reviewed and adjusted accordingly: Yes - Disposition Anticipated Discharge: Home
--- NOTE | 2018-08-28 11:08 | PDOC DISCHARGE SUMMARY ---
Final Diagnosis Discharge Date: 08/28/18 - Final Diagnosis (1) Anemia complicating , third trimester Is this a current diagnosis for this admission?: Yes (2) Drug use affecting Is this a current diagnosis for this admission?: Yes (3) Hepatitis C Is this a current diagnosis for this admission?: Yes (4) History of anxiety Is this a current diagnosis for this admission?: Yes (5) Insufficient antepartum care Is this a current diagnosis for this admission?: Yes (6) (normal spontaneous vaginal delivery) Is this a current diagnosis for this admission?: Yes (7) Positive GBS test Is this a current diagnosis for this admission?: Yes (8) Is this a current diagnosis for this admission?: Yes Discharge Data - Discharge Medication Home Medications: No.116/Iron/Folic/Dha [Expecta Combo Pack] 1 tab PO DAILY 03/03/17 Ferrous Sulfate [Iron] 325 mg PO DAILY 08/03/18 Acetaminophen [Tylenol 325 mg Tablet] 650 mg PO Q6HP PRN tablet 08/05/18 Gestational Age: 38.1 wks Reason(s) for Admission: Onset of Labor Procedures: Ultrasound Intrapartum Procedure(s): Spontaneous Vaginal Delivery - Data Baby 1 Female at 1 minute: 8 at 5 minutes: 9 Weight: 3.118 kg Home with Mother: No Complications: Yes - CPS needs to clear before discharge - Diagnosis Test Laboratory: Temp Pulse Resp BP Pulse Ox 98.0 F 84 15 112/74 100 08/28/18 09:18 08/28/18 09:18 08/28/18 09:18 08/28/18 09:18 08/28/18 09:18 08/25/18 08/25/18 08/27/18 16:38 18:25 06:47 RBC 3.12 L 2.91 L Hgb 10.2 L 9.6 L Hct 29.4 L 27.3 L Urine Opiates Screen NEGATIVE - Discharge information/Instructions Discharge Activity: Activity As Tolerated, Balance Activity w/Rest, No Lifting Over 10 Pounds, No Lifting/Push/Pulling, Pelvic Rest, Slowly Increase Activity, No tub bath, Walk Frequently Discharge Diet: Regular Disposition: HOME, SELF-CARE Follow up with: [facility] in: 4, Weeks
== END 2018-08-28 17:25 | disposition home or self-care (01) | DRG 806 ==
LOC: LC 16:20 → LR 17:09 → 2S 08-26 04:20
PROVIDERS: ADMIT Obstetrics & Gynecology; ATTEND Obstetrics & Gynecology
PROC: 10E0XZZ Delivery of Products of Conception, External Approach (ICD-10-PCS; principal; 2018-08-26)
PROC: 4A1HXCZ Monitoring of Products of Conception, Cardiac Rate, External Approach (ICD-10-PCS; 2018-08-26)
DX: O99.334 Smoking (tobacco) complicating childbirth (principal); O98.42 Viral hepatitis complicating childbirth; Z37.0 Single live birth; O99.324 Drug use complicating childbirth; F12.90 Cannabis use, unspecified, uncomplicated; O99.824 Streptococcus B carrier state complicating childbirth; F32.9 Major depressive disorder, single episode, unspecified; F17.200 Nicotine dependence, unspecified, uncomplicated; O69.81X0 Labor and delivery complicated by cord around neck, without compression, not applicable or unspecified; Z3A.38 38 weeks gestation of pregnancy; O99.344 Other mental disorders complicating childbirth; F41.9 Anxiety disorder, unspecified; B19.20 Unspecified viral hepatitis C without hepatic coma; O99.02 Anemia complicating childbirth; D64.9 Anemia, unspecified; Z88.2 Allergy status to sulfonamides
CPT/HCPCS: 36415; 80307; 80349; 81005; 84112; 85025; 85027; 86592; 86850; 86900; 86901; 94760; G0480; J2405; J2540; J2590; J3010; J3490

== ENCOUNTER 2019-01-04 10:07 | Emergency (ER) | payer MEDICAID ==
[2019-01-04 10:37] VITALS: BP 129/92
[2019-01-04] MEDS ORDERED: HYDROCODONE/ACETAMINOPHEN 5-325 MG TABLET PO ONE (11:10)
--- NOTE | 2019-01-04 11:12 | ER Document Report ---
HPI - HPI Patient complains to provider of: left wrist injury Time Seen by Provider: 01/04/19 11:07 Onset: Yesterday Onset/Duration: Sudden Quality of pain: Sharp Pain Level: 5 Context: Patient states that she fell on outstretched hand yesterday injuring her left wrist. Patient is right-hand dominant. Patient with swelling and deformity to left wrist area. Associated Symptoms: Other - Left wrist pain Exacerbated by: Movement Relieved by: Denies Similar symptoms previously: No Recently seen / treated by doctor: No - ROS ROS below otherwise negative: Yes Systems Reviewed and Negative: Yes All other systems reviewed and negative - NEURO Neurology: DENIES: Weakness - GASTROINTESTINAL Gastrointestinal: DENIES: Nausea - REPRODUCTIVE Reproductive: DENIES: : - MUSCULOSKELETAL Musculoskeletal: REPORTS: Extremity pain, Swelling - DERM Skin Color: Normal Skin Problems: None Past Medical History - General Information source: Patient - Social History Smoking Status: Never Smoker Frequency of alcohol use: None Drug Abuse: None Occupation: None Family History: Reviewed & Not Pertinent Renal/ Medical History: Denies: Hx Peritoneal Dialysis Psychiatric Medical History: Reports: Hx Anxiety Surgical Hx: Negative - Immunizations Hx Diphtheria, Pertussis, Tetanus Vaccination: Yes Vertical Provider Document - CONSTITUTIONAL Agree With Documented VS: Yes Exam Limitations: No Limitations General Appearance: WD/WN, No Apparent Distress Notes: Patient reeks of marijuana - INFECTION CONTROL TRAVEL OUTSIDE OF THE [place] IN LAST 30 DAYS: No - HEENT HEENT: Atraumatic, Normocephalic - NECK Neck: Normal Inspection - RESPIRATORY Respiratory: No Respiratory Distress - CARDIOVASCULAR Pulses: Normal: Radial - MUSCULOSKELETAL/EXTREMETIES Musculoskeletal/Extremeties: MAEW, Tender - Tenderness to left wrist over distal radius with 2+ edema, Edema. negative: Eccymosis - NEURO Level of Consciousness: Awake, Alert, Appropriate Motor/Sensory: No Motor Deficit - DERM Integumentary: Warm, Dry Course - Vital Signs Vital signs: Temp Pulse Resp BP Pulse Ox 98.6 F 94 17 129/92 H 97 01/04/19 10:35 01/04/19 10:35 01/04/19 10:35 01/04/19 10:35 01/04/19 10:35 - Diagnostic Test Radiology reviewed: Pending, Image reviewed Procedures - Immobilization Left Wrist Pre-Proc Neuro Vasc Exam: Normal Immobilizer type: Sugar tong, Sling Performed by: PCT Post-Proc Neuro Vasc Exam: Normal Alignment checked and good: Yes Discharge - Discharge Clinical Impression: Distal radius fracture, left Qualifiers: Encounter type: initial encounter Fracture type: closed Fracture morphology: unspecified fracture morphology Qualified Code(s): S52.502A - Unspecified fracture of the lower end of left radius, initial encounter for closed fracture Condition: Stable Disposition: HOME, SELF-CARE Instructions: Fractured Radius ([facility]), Ice & Elevation ([facility]), Oral Narcotic Medication ([facility]), Splint Precautions ([facility]), Temporary Sling ([facility]) Additional Instructions: Return immediately for any new or worsening symptoms Followup with your primary care provider, call tomorrow to make a followup appointment Follow-up with orthopedics for further evaluation, call tomorrow for an appointment Prescriptions: Hydrocodone/Acetaminophen [[place] 5-325 mg Tablet] 1 tab PO Q6 PRN #15 tablet PRN Reason: Naproxen [Naprosyn 250 Nmg Tablet] 1 tab PO BID #14 tablet Referrals: [facility] [Provider Group] - Follow up tomorrow
[2019-01-04] MEDS ORDERED: IBUPROFEN 800 MG TABLET PO ONE (11:17)
--- NOTE | 2019-01-04 12:14 | RADIOLOGY REPORT (SQ) ---
EXAM DESCRIPTION: WRIST LEFT 3 VIEWS COMPLETED DATE/TIME: 01/04/2019 11:32 am REASON FOR STUDY: FOOSH COMPARISON: None. NUMBER OF VIEWS: Three views. TECHNIQUE: AP, lateral, and oblique radiographic images acquired of the left wrist. LIMITATIONS: None. FINDINGS: MINERALIZATION: Normal. BONES: Distal radius transverse fracture with mild volar angulation. No definite intra-articular ext ension. SOFT TISSUES: Soft tissue swelling. OTHER: No other significant finding. IMPRESSION: Distal radius transverse fracture with mild volar angulation. No definite intra-articul ar extension. TECHNICAL DOCUMENTATION: JOB ID: [id number] [employer]- All Rights Reserved Reading location - IP/workstation name: [email or web address]
== END 2019-01-04 12:04 | disposition home or self-care (01) ==
LOC: ER 10:07
DX: S52.502A Unspecified fracture of the lower end of left radius, initial encounter for closed fracture (principal); W19.XXXA Unspecified fall, initial encounter
CPT/HCPCS: 99283; 73110; 29125; J3490

== ENCOUNTER 2019-06-19 12:49 | Emergency (ER) | payer MEDICAID ==
[2019-06-19] MEDS ORDERED: ONDANSETRON 4 MG TAB.RAPDIS PO ONE (13:33)
--- NOTE | 2019-06-19 13:33 | ER Document Report ---
ED Medical Screen (RME) - General Chief Complaint: Vaginal Pain Stated Complaint: UTERUS/VAGINAL PAIN Time Seen by Provider: 06/19/19 13:30 Mode of Arrival: Wheelchair Information source: Patient Notes: 33-year-old female presents to ED for complaint of abdominal pain in the uterine area x7 days. She states she had a surgical 06/12/2019 and has had pain and bleeding since then. She states she called the office Saturday and Saturday and they finally called her back on Saturday scheduled her to be seen on when she got there they had to wait for an hour and a half and then told her that the doctor was out of the office they did an ultrasound and told her she still had products of conception and would need a D&C that she would need to come back on Saturday. She was told if she continued to have pain to come into the emergency room. That is why she is now in the emergency room because she is continuing to have pain. She states she has 2 small children u nder the age of 2 at home and cannot be away from them. After performing a Medical Screening Examination, I spoke with the patient at length in regards to leaving the hospital against medical advice. I do not believe the patient should leave but the patient is alert oriented x4, understands the risks and benefits of staying and leaving including disability and . Pt understands that he can return at any time for further care and is more than welcome to do so. Pt verbalizes this understanding. TRAVEL OUTSIDE OF THE [place] IN LAST 30 DAYS: No - Related Data Allergies/Adverse Reactions: Sulfa (Sulfonamide Antibiotics) Allergy (Verified 06/19/19 13:27) Past Medical History Renal/ Medical History: Denies: Hx Peritoneal Dialysis Psychiatric Medical History: Reports: Hx Anxiety, Hx Depression - anxiety - Immunizations Hx Diphtheria, Pertussis, Tetanus Vaccination: Yes Physical Exam - Vital signs Vitals: Temp Pulse Resp BP Pulse Ox 98.3 F 101 H 18 122/80 100 06/19/19 12:56 06/19/19 12:56 06/19/19 12:56 06/19/19 12:56 06/19/19 12:56 Course - Vital Signs Vital signs: Temp Pulse Resp BP Pulse Ox 98.3 F 101 H 18 122/80 100 06/19/19 12:56 06/19/19 12:56 06/19/19 12:56 06/19/19 12:56 06/19/19 12:56
[2019-06-19 14:45] LABS: APPEARANCE,URINE CLOUDY; BILIRUBIN,URINE NEGATIVE (NEGATIVE); COLOR,URINE AMBER; GLUCOSE, URINE NEGATIVE (NEGATIVE); KETONES,URINE TRACE mg/dL (NEGATIVE); PROTEIN,URINE 100 mg/dL (NEGATIVE); URINE SPECIFIC GRAVITY 1.019; UROBILINOGEN,URINE NEGATIVE mg/dL (<2.0)
[2019-06-19] MEDS ORDERED: MORPHINE SULFATE 10 MG/ML INJ IV ONE ×2 (15:43→19:05)
[2019-06-19] MEDS ORDERED: NORMAL SALINE 1000 ML 1,000 ML IV ONE (15:43)
[2019-06-19] MEDS ORDERED: ONDANSETRON HCL INJ/PF 4 MG/2 ML SDV IV ONE ×2 (15:43→19:05)
--- NOTE | 2019-06-19 15:43 | ER Document Report ---
ED General - General Chief Complaint: Vaginal Bleeding Stated Complaint: UTERUS/VAGINAL PAIN Time Seen by Provider: 06/19/19 13:30 Primary Care Provider: CHRISTIAN QUINONES MD [ACTIVE STAFF] - 06/22/19 HUMBERTO LUNDBERG MD [Primary Care Provider] - Follow up as needed Mode of Arrival: Wheelchair TRAVEL OUTSIDE OF THE [place] IN LAST 30 DAYS: No - HPI Notes: 33-year-old female to the emergency department with complaints of pelvic pain and vaginal bleeding that began after she had a surgical elective last week at [facility] in [place]. She states that last Saturday she went to [facility] and found that she was 11 weeks . She initially thought that she was can be taking medicine for but because of how far along she was she needed to have a surgical procedure. She states that she was sent home with antinausea medicine and Percocet which initially helped to control her pain but as the weekend and the week progressed she noted that she was having worsening pelvic pain. She states that she is also been frequently urinating. She states that she called [facility] on Saturday, Saturday, Saturday and then finally was able to be seen on . She states that they did an ultrasound in the office and found that she had retained products of conception. She states that they told her to come back on Saturday for definitive care and a D&C. She states that she cannot tolerate the pain and thus decided to come to the emergency department. She admits to nausea and vomiting with her pain. She denies any syncope, chest pain, palpitations, shortness of breath. She does not have any paperwork from [facility] with her. - Related Data Allergies/Adverse Reactions: Sulfa (Sulfonamide Antibiotics) Allergy (Verified 06/19/19 13:27) Past Medical History - General Information source: Patient - Social History Smoking Status: Current Every Day Smoker Chew tobacco use (# tins/day): No Drug Abuse: None Family History: Reviewed & Not Pertinent Patient has suicidal ideation: No Patient has homicidal ideation: No Renal/ Medical History: Denies: Hx Peritoneal Dialysis Psychiatric Medical History: Reports: Hx Anxiety, Hx Depression - anxiety - Immunizations Hx Diphtheria, Pertussis, Tetanus Vaccination: Yes Review of Systems - Review of Systems Constitutional: denies: Chills, Fever EENT: No symptoms reported Cardiovascular: denies: Chest pain, Palpitations, Orthopnea, Dyspnea, Syncope, Dizziness, Lightheaded Respiratory: denies: Cough, Short of breath Gastrointestinal: Abdominal pain, Nausea, Vomiting. denies: Diarrhea Genitourinary: Frequency Female Genitourinary: See HPI, Vaginal bleeding Musculoskeletal: No symptoms reported Skin: No symptoms reported Hematologic/Lymphatic: No symptoms reported Neurological/Psychological: No symptoms reported -: Yes All other systems reviewed and negative Physical Exam - Vital signs Vitals: Temp Pulse Resp BP Pulse Ox 98.3 F 101 H 18 122/80 100 06/19/19 12:56 06/19/19 12:56 06/19/19 12:56 06/19/19 12:56 06/19/19 12:56 Interpretation: Normal - General General appearance: Appears well, Alert In distress: Mild - mild pain distress - HEENT Head: Normocephalic, Atraumatic Eyes: Normal Pupils: PERRL - Respiratory Respiratory status: No respiratory distress Chest status: Nontender Breath sounds: Normal Chest palpation: Normal - Cardiovascular Rhythm: Regular Heart sounds: Normal auscultation Murmur: No - Abdominal Inspection: Normal Distension: No distension Bowel sounds: Normal Tenderness: Tender - there is TTP over the suprapubic abdomen with mild guarding. no rebound, no CVA tenderness. 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 Quinones, SAP GATHERER, about patient. Since patient has a stable H and H and stable vitals, she thinks the patient can follow up outpatient for further management of retained products. Dr. Quinones states patient may either see [facility] tomorrow as scheduled or patient may call the office on Saturday and be seen. She would like to start the patient on Doxycycline. She does not want the patient to have any cytotec. Discussed this plan with my ER attending, Dr. Cadena and he agrees with the plan. Discussed at length with patient and she also agrees. I have given strict return precautions to return if any worsening pain, intractable NV, heavy vaginal bleeding, or passing out. Patient agrees with the plan. Impression: Retained products of conception after elective surgical AB. 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 Will follow the treatment plan as outlined above. - Vital Signs Vital signs: Temp Pulse Resp BP Pulse Ox 98.4 F 98 18 128/64 H 100 06/19/19 20:30 06/19/19 20:30 06/19/19 20:30 06/19/19 20:30 06/19/19 20:30 - Laboratory Result Diagrams: 06/19/19 16:15 06/19/19 17:49 Laboratory results interpreted by me: 06/19/19 06/19/19 14:02 17:49 Glucose 71 L AST 47 H Beta HCG, Quant 1268.00 H Urine Protein 100 H Urine Ketones TRACE H Urine Blood LARGE H Leukocyte Esterase Rfl SMALL H Urine Ascorbic Acid 40 H - Diagnostic Test Radiology reviewed: Image reviewed, Reports reviewed Discharge - Discharge Clinical Impression: Pelvic pain, Retained products of conception Condition: Stable Disposition: HOME, SELF-CARE Instructions: Pelvic Pain ([facility]), Vaginal Bleeding ([facility]) Additional Instructions: FOLLOW UP WITH DR. QUINONES ON SATURDAY WITHOUT FAIL. CALL HER OFFICE ON SATURDAY AT [phone] TO BE WORKED INTO THE SCHEDULE. TAKE MEDICINES PRESCRIBED. COMPLETE ANTIBIOTICS. RETURN IF WORSENING PAIN, INTRACTABLE VOMITING, FEVER, SOAKING THROUGH MORE THAN 2 PADS EVERY 30 MINUTES. Prescriptions: Doxycycline Hyclate 100 mg PO BID #20 capsule Oxycodone HCl/Acetaminophen [Percocet 5-325 mg Tablet] 1 tab PO Q4H PRN #15 tablet PRN Reason: Promethazine HCl [Phenergan 25 mg Tablet] 1 tab PO Q6H PRN #10 tablet PRN Reason: Ondansetron [Zofran Odt 4 mg Tablet] 1 - 2 tab PO Q4H PRN #15 tab.rapdis PRN Reason: For Nausea/Vomiting Referrals: HUMBERTO LUNDBERG MD [Primary Care Provider] - Follow up as needed CHRISTIAN QUINONES MD [ACTIVE STAFF] - 06/22/19
[2019-06-19 16:38] LABS: ABSOLUTE LYMPHOCYTES (AUTO) 1.8 10^3/uL (0.5-4.7); ABSOLUTE MONOCYTES (AUTO) 0.5 10^3/uL (0.1-1.4); ABSOLUTE NEUT (AUTO) 3.7 10^3/uL (1.7-8.2); BASOPHILS % (AUTO) 0.4 % (0-2); EOSINOPHILS % (AUTO) 0.7 % (0-6); HEMATOCRIT 37.8 % (36.0-47.0); HEMOGLOBIN 12.8 g/dL (12.0-15.5); LYMPHOCYTES % (AUTO) 30.1 % (13-45); MEAN CORPUSCULAR HEMOGLOBIN 31.7 pg (27.0-33.4); MEAN CORPUSCULAR HGB CONC 33.9 g/dL (32.0-36.0); MEAN CORPUSCULAR VOLUME 93 fl (80-97); MONOCYTES % (AUTO) 7.8 % (3-13); PLATELET COUNT 355 10^3/uL (150-450); RED BLOOD COUNT 4.05 10^6/uL (3.72-5.28); RED CELL DISTRIBUTION WIDTH 13.5 % (11.5-14.0); TOTAL CELLS COUNTED % (AUTO) 100 %; WHITE BLOOD COUNT 6.1 10^3/uL (4.0-10.5)
--- NOTE | 2019-06-19 17:03 | RADIOLOGY REPORT (SQ) ---
EXAM DESCRIPTION: U/S NON OB PEL TV W/DOPPLER COMPLETED DATE/TIME: 06/19/2019 4:54 pm REASON FOR STUDY: pelvic pain, recent elective AB, eval retained POC COMPARISON: None. TECHNIQUE: Dynamic and static grayscale images acquired of the pelvis via transvaginal approach and recorded on PACS. Additional selected color Doppler and spectral images recorded. LIMITATIONS: None. FINDINGS: UTERUS: Contour normal. No mass. ENDOMETRIAL STRIPE: Complex fluid collection with soft tissue components in the endometrial cavity. CERVIX: No nabothian cysts. RIGHT OVARY AND DOPPLER: Ovary not visualized. LEFT OVARY AND DOPPLER: Ovary not visualized. FREE FLUID: None noted. OTHER: No other significant finding. MEASUREMENTS: UTERUS: 4.2 x 7.6 x 8.4 cm. ENDOMETRIAL STRIPE: Not visualized. RIGHT OVARY: Not visualized. LEFT OVARY: Not visualized. IMPRESSION: COMPLEX MATERIAL IN THE ENDOMETRIAL CAVITY, CONCERNING FOR RETAINED PRODUCTS. TECHNICAL DOCUMENTATION: JOB ID: [id number] [employer]- All Rights Reserved Rev-11/15 Reading location - IP/workstation name: [email or web address]
[2019-06-19 18:18] LABS: ALBUMIN 3.9 g/dL (3.5-5.0); ALKALINE PHOSPHATASE 47 U/L (38-126); ANION GAP 8 (5-19); ASPARTATE AMINO TRANSFERASE 47 U/L (14-36); BILIRUBIN,DIRECT 0.1 mg/dL (0.0-0.4); BILIRUBIN,TOTAL 0.4 mg/dL (0.2-1.3); BLOOD UREA NITROGEN 16 mg/dL (7-20); CARBON DIOXIDE 25 mmol/L (22-30); CHLORIDE 105 mmol/L (98-107); GLUCOSE 71 mg/dL (75-110); POTASSIUM 4.3 mmol/L (3.6-5.0); TOTAL PROTEIN 7.3 g/dL (6.3-8.2)
[2019-06-19] MEDS ORDERED: DOXYCYCLINE HYCLATE 100 MG TABLET PO ONE (19:06)
[2019-06-19 20:32] VITALS: BP 128/64
[2019-06-19 21:44] LABS: CHLAM PCR NOT DETECTED (NOT DETECT)
== END 2019-06-19 21:12 | disposition home or self-care (01) ==
LOC: ER 12:49
DX: O07.1 Delayed or excessive hemorrhage following failed attempted termination of pregnancy (principal); R10.2 Pelvic and perineal pain; R35.0 Frequency of micturition; R11.2 Nausea with vomiting, unspecified; F17.200 Nicotine dependence, unspecified, uncomplicated; Z88.2 Allergy status to sulfonamides
CPT/HCPCS: 96376; 99284; 96361; 96374; 96375; 86900; 86901; 36415; 86850; 84702; 85025; 80053; 81001; 87491; 87591; 76830; 93976; J3490; S0119; J2270; J2405; J7030

== ENCOUNTER 2019-06-23 06:49 | Day surgery (SDC) | payer MEDICAID ==
[~2019-06-23 06:49] MED LIST: DEXAMETHASONE SOD PHOSPHATE INJ 4 MG/1 ML VIAL ONE; FENTANYL CITRATE INJ/PF 100 MCG/2 ML AMPUL ONE; LACTATED RINGERS 1000 ML IV PRN; LIDOCAINE 0.5% INJ-PF (5 MG/ML) 50 ML SDV SUBCUT PRN; MIDAZOLAM 2 MG/2 ML INJ ONE; ONDANSETRON HCL INJ/PF 4 MG/2 ML SDV ONE; PROPOFOL INJ 200 MG/20 ML VIAL IV ONE
[2019-06-23] MEDS ORDERED: MIDAZOLAM 2 MG/2 ML INJ ONE (07:29)
[2019-06-23 07:32] LABS: APPEARANCE,URINE CLEAR; BILIRUBIN,URINE NEGATIVE (NEGATIVE); COLOR,URINE YELLOW; GLUCOSE, URINE NEGATIVE (NEGATIVE); KETONES,URINE NEGATIVE (NEGATIVE); LEUKOCYTE ESTERASE,URINE NEGATIVE (NEGATIVE); NITRITE,URINE NEGATIVE (NEGATIVE); PROTEIN,URINE NEGATIVE (NEGATIVE); URINE SPECIFIC GRAVITY 1.013; UROBILINOGEN,URINE NEGATIVE mg/dL (<2.0)
[2019-06-23 07:40] LABS: HEMATOCRIT 35.2 % (36.0-47.0); HEMOGLOBIN 12.1 g/dL (12.0-15.5); MEAN CORPUSCULAR HGB CONC 34.3 g/dL (32.0-36.0); MEAN CORPUSCULAR VOLUME 94 fl (80-97); PLATELET COUNT 307 10^3/uL (150-450); RED BLOOD COUNT 3.77 10^6/uL (3.72-5.28); RED CELL DISTRIBUTION WIDTH 13.3 % (11.5-14.0); WHITE BLOOD COUNT 5.9 10^3/uL (4.0-10.5)
[2019-06-23] MEDS ORDERED: FENTANYL CITRATE INJ/PF 100 MCG/2 ML AMPUL ONE (07:42)
[2019-06-23] MEDS ORDERED: CEFAZOLIN INJ 1 GM VIAL ONE (08:55)
[2019-06-23] MEDS ORDERED: MORPHINE SULFATE 10 MG/ML INJ IV PRN (09:25)
[2019-06-23] MEDS ORDERED: PROMETHAZINE HCL INJ 25 MG/1 ML VIAL IV PRN ×2 (09:25)
[2019-06-23] MEDS ORDERED: DIPHENHYDRAMINE HCL 50 MG/ML VIAL IV PRN (09:25)
[2019-06-23] MEDS ORDERED: FENTANYL CITRATE INJ/PF 100 MCG/2 ML AMPUL IV PRN ×3 (09:25)
[2019-06-23] MEDS ORDERED: MEPERIDINE HCL/PF INJ 25 MG/1 ML DISP.SYRIN IV PRN (09:25)
[2019-06-23] MEDS ORDERED: RINGERS SOLUTION,LACTATED 1,000 ML IV PRN (09:31)
[2019-06-23] MEDS ORDERED: OXYCODONE-ACETAMINOPHEN 5-325 MG TABLET PO PRN ×2 (09:31)
[2019-06-23] MEDS ORDERED: IBUPROFEN 800 MG TABLET PO PRN (09:31)
[2019-06-23] MEDS ORDERED: KETOROLAC TROMETHAMINE INJ/PF 30 MG/1 ML SDV IV PRN (09:31)
--- NOTE | 2019-06-23 09:34 | Operative Report ---
Operative Report DATE OF SURGERY: 06/23/19 PREOPERATIVE DIAGNOSIS: Incomplete POSTOPERATIVE DIAGNOSIS: Same OPERATION: Suction D&C SURGEON: DIO MCKEON ANESTHESIA: GA TISSUE REMOVED OR ALTERED: Uterine contents COMPLICATIONS: None ESTIMATED BLOOD LOSS: 20 cc INTRAOPERATIVE FINDINGS: Uterus sounded to 8 cm before and after the case PROCEDURE: Patient was taken the OR and placed in supine position. General anesthesia was induced. She is placed in dorsolithotomy position using Heramn stirrups. Her vagina and perineum were prepared and draped in sterile fashion. A weighted speculum was placed in the vagina and the cervix grasped with a tenaculum. Uterus sounded 8 cm. The cervix was easily dilated. A size 10 suction curette was used to evacuate the uterine contents. A gentle sharp curettage revealed no further products. Uterus was once again sounded 8 cm. All instruments were removed. She is placed back in supine position. She is brought out of anesthesia and taken to recovery in stable condition.
--- NOTE | 2019-06-23 09:37 | Discharge Summary ---
Discharge Summary (SDC) - Discharge Final Diagnosis: Incomplete Date of Surgery: 06/23/19 Discharge Date: 06/23/19 Condition: Good Discharge Diet: Regular Discharge Activity: Pelvic Rest Home Care Assistance: None Needed Report the Following to Your Physician Immediately: Increase in Pain, Fever over 101 Degrees, Unusual Bleeding
[2019-06-23] MEDS ORDERED: OXYCODONE-ACETAMINOPHEN 5-325 MG TABLET ONE ×2 (10:14→10:15)
[2019-06-23 11:46] VITALS: BP 117/94
== END 2019-06-23 11:30 | disposition home or self-care (01) ==
LOC: OROUT 06:49
PROVIDERS: ATTEND Obstetrics & Gynecology
DX: O02.1 Missed abortion (principal); Z87.891 Personal history of nicotine dependence; Z88.2 Allergy status to sulfonamides
CPT/HCPCS: 59820; 36415; 85027; 81001; 88305 ×2; J2250; J0690; J1100; J3010; J2405; J2704; 1965

== ENCOUNTER 2019-10-08 03:29 | Emergency (ER) | payer MEDICAID ==
[2019-10-08] MEDS ORDERED: OXYCODONE-ACETAMINOPHEN 5-325 MG TABLET PO ONE ×2 (04:01→07:41)
[2019-10-08] MEDS ORDERED: ONDANSETRON 4 MG TAB.RAPDIS PO ONE ×2 (04:01→07:41)
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
[2019-10-08] MEDS ORDERED: AMOXICILLIN TRIHYDRATE 500 MG CAPSULE PO SCH (10:00)
[2019-10-08] MEDS ORDERED: ACETAMINOPHEN 325 MG TABLET PO ONE (12:43)
[2019-10-08 12:44] VITALS: BP 141/91
== END 2019-10-08 12:55 | disposition home or self-care (01) ==
LOC: ER 03:29
DX: S01.552A Open bite of oral cavity, initial encounter (principal); R22.0 Localized swelling, mass and lump, head; Y04.0XXA Assault by unarmed brawl or fight, initial encounter; F17.200 Nicotine dependence, unspecified, uncomplicated; Z88.2 Allergy status to sulfonamides
CPT/HCPCS: 99284; 70450; 70486; J3490; S0119

== ENCOUNTER 2019-11-12 15:40 | Emergency (ER) | payer MEDICAID ==
[2019-11-12] MEDS ORDERED: OXYCODONE-ACETAMINOPHEN 5-325 MG TABLET PO ONE (16:35)
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
--- NOTE | 2019-11-12 17:20 | RADIOLOGY REPORT (SQ) ---
EXAM DESCRIPTION: WRIST RIGHT 3 VIEWS IMAGES COMPLETED DATE/TIME: 11/12/2019 5:02 pm REASON FOR STUDY: injury COMPARISON: None. NUMBER OF VIEWS: Three views. TECHNIQUE: AP, lateral, and oblique radiographic images acquired of the right wrist. LIMITATIONS: None. FINDINGS: MINERALIZATION: Normal. BONES: No acute fracture or dislocation. No worrisome bone lesions. Normal alignment. SOFT TISSUES:Soft tissue swelling. No foreign body. OTHER: No other significant finding. IMPRESSION: 1. Soft tissue swelling. Correlation suggested. 2. No acute osseous findings. TECHNICAL DOCUMENTATION: JOB ID: [id number] 2010 [employer]- All Rights Reserved Reading location - IP/workstation name: [email or web address]
[2019-11-12 19:34] VITALS: BP 128/73
== END 2019-11-12 18:55 | disposition home or self-care (01) ==
LOC: ER 15:40
DX: S60.211A Contusion of right wrist, initial encounter (principal); Y08.89XA Assault by other specified means, initial encounter; F17.200 Nicotine dependence, unspecified, uncomplicated
CPT/HCPCS: 99283

== ENCOUNTER 2020-02-17 18:04 | Emergency (ER) | payer MEDICAID ==
--- NOTE | 2020-02-17 20:48 | ER Document Report ---
ED Medical Screen (RME) - General Stated Complaint: ABDOMINAL PAIN Time Seen by Provider: 02/17/20 20:41 Mode of Arrival: Ambulatory Information source: Patient Notes: HPI; female presents emergency room complaining of right lower quadrant pain for the past 3 days. History of left ovarian cyst. Also states her last menstrual cycle was January 02 and started bleeding today. She is sexually active not currently using anything for control. Took a leftover Percocet without relief. PE: Alert and oriented x3. Lungs: Clear to auscultation without rales, rhonchi, wheezes. Heart: Regular rate and rhythm without murmurs rubs or gallops. Moderate distress noted. I have greeted and performed a rapid initial assessment of this patient. A comprehensive ED assessment and evaluation of the patient, analysis of test results and completion of the medical decision making process will be conducted by additional ED providers. I have specifically instructed the patient or family members with the patient to immediately return to any nursing staff should anything change in the patient's condition or with their chief complaint. TRAVEL OUTSIDE OF THE [place] IN LAST 30 DAYS: No - Related Data Allergies/Adverse Reactions: Sulfa (Sulfonamide Antibiotics) Allergy (Severe, Verified 02/17/20 20:40) Past Medical History - Past Medical History Cardiac Medical History: Denies: Hx Coronary Artery Disease, Hx Heart Attack, Hx Hypertension Pulmonary Medical History: Denies: Hx Asthma, Hx Bronchitis, Hx COPD, Hx Pneumonia Neurological Medical History: Denies: Hx Cerebrovascular Accident, Hx Seizures Renal/ Medical History: Denies: Hx Peritoneal Dialysis Musculoskeltal Medical History: Denies Hx Arthritis Psychiatric Medical History: Reports: Hx Anxiety, Hx Depression - anxiety - Immunizations Immunizations up to date: Yes Hx Diphtheria, Pertussis, Tetanus Vaccination: Yes Physical Exam - Vital signs Vitals: Temp Pulse Resp BP Pulse Ox 97.8 F 83 17 126/70 H 100 02/17/20 18:11 02/17/20 18:11 02/17/20 18:11 02/17/20 18:11 02/17/20 18:11 Course - Vital Signs Vital signs: Temp Pulse Resp BP Pulse Ox 97.8 F 83 17 126/70 H 100 02/17/20 18:11 02/17/20 18:11 02/17/20 18:11 02/17/20 18:11 02/17/20 18:11
[2020-02-17 21:27] LABS: ABSOLUTE EOSINOPHILS # (AUTO) 0.1 10^3/uL (0.0-0.6); ABSOLUTE LYMPHOCYTES (AUTO) 2.3 10^3/uL (0.5-4.7); ABSOLUTE MONOCYTES (AUTO) 0.5 10^3/uL (0.1-1.4); ABSOLUTE NEUT (AUTO) 4.4 10^3/uL (1.7-8.2); BASOPHILS % (AUTO) 0.7 % (0-2); EOSINOPHILS % (AUTO) 1.3 % (0-6); HEMATOCRIT 42.1 % (36.0-47.0); HEMOGLOBIN 14.1 g/dL (12.0-15.5); LYMPHOCYTES % (AUTO) 31.8 % (13-45); MEAN CORPUSCULAR HEMOGLOBIN 31.5 pg (27.0-33.4); MEAN CORPUSCULAR HGB CONC 33.5 g/dL (32.0-36.0); MEAN CORPUSCULAR VOLUME 94 fl (80-97); MONOCYTES % (AUTO) 6.5 % (3-13); PLATELET COUNT 262 10^3/uL (150-450); RED BLOOD COUNT 4.47 10^6/uL (3.72-5.28); RED CELL DISTRIBUTION WIDTH 14.9 % (11.5-14.0); SEGMENTED NEUTROPHILS % (AUTO) 59.7 % (42-78); TOTAL CELLS COUNTED % (AUTO) 100 %; WHITE BLOOD COUNT 7.3 10^3/uL (4.0-10.5)
[2020-02-17 21:43] LABS: ALBUMIN 4.7 g/dL (3.5-5.0); ALKALINE PHOSPHATASE 70 U/L (38-126); ANION GAP 8 (5-19); ASPARTATE AMINO TRANSFERASE 24 U/L (14-36); BILIRUBIN,TOTAL 0.3 mg/dL (0.2-1.3); BLOOD UREA NITROGEN 18 mg/dL (7-20); CALCIUM 9.5 mg/dL (8.4-10.2); CARBON DIOXIDE 28 mmol/L (22-30); CHLORIDE 103 mmol/L (98-107); GLUCOSE 88 mg/dL (75-110); POTASSIUM 4.2 mmol/L (3.6-5.0); TOTAL PROTEIN 8.5 g/dL (6.3-8.2)
[2020-02-17 22:45] LABS: APPEARANCE,URINE CLOUDY; BILIRUBIN,URINE NEGATIVE (NEGATIVE); COLOR,URINE YELLOW; GLUCOSE, URINE NEGATIVE (NEGATIVE); KETONES,URINE NEGATIVE (NEGATIVE); LEUKOCYTE ESTERASE,URINE NEGATIVE (NEGATIVE); NITRITE,URINE NEGATIVE (NEGATIVE); PROTEIN,URINE NEGATIVE (NEGATIVE); URINE SPECIFIC GRAVITY 1.017; UROBILINOGEN,URINE NEGATIVE mg/dL (<2.0)
[2020-02-18] MEDS ORDERED: ONDANSETRON 4 MG TAB.RAPDIS PO ONE (03:44)
[2020-02-18] MEDS ORDERED: KETOROLAC TROMETHAMINE 60 MG/2 ML SDV IM ONE (03:44)
--- NOTE | 2020-02-18 04:01 | ER Document Report ---
ED GI/ - General Chief Complaint: Abdominal Pain Stated Complaint: ABDOMINAL PAIN Time Seen by Provider: 02/17/20 20:41 Mode of Arrival: Ambulatory Notes: CHIEF COMPLAINT: Right pelvic pain for 3 days HPI: 34-year-old female presenting to the emergency department for evaluation of right pelvic pain over the last 3 days also with abnormal vaginal bleeding for 1 day. Patient reports a history of left ovarian cyst 2 months ago never followed up with her SALES OPERATIONS ASSISTANT Angus Sanchez for that. States this feels similar. Reports pain in the low pelvis with movement of her right leg or with walking. Patient does not believe she has appendicitis. She has had no fever. Has had slight nausea tonight no vomiting ROS: See HPI - all other systems were reviewed and are otherwise negative Constitutional: no fever or recent illness Eyes: no drainage, no blurred vision ENT: no runny nose, no sore throat Cardiovascular: no chest pain Resp: no SOB, no cough GI: no vomiting, no diarrhea, positive pelvic pain : no dysuria, no vaginal discharge, positive abnormal vaginal bleeding Integumentary: no rash Allergy: no hives Musculoskeletal: no extremity pain or swelling Neurological: no numbness/tingling, no weakness MEDICATIONS: I agree with the patient medications as charted by the RN. ALLERGIES: I agree with the allergies as charted by the RN. PAST MEDICAL HISTORY/PAST SURGICAL HISTORY: Reviewed and agree as charted by RN. SOCIAL HISTORY: Reviewed and agree as charted by RN. FAMILY HISTORY: No significant familial comorbid conditions directly related to patient complaint EXAM: Reviewed vital signs as charted by RN. CONSTITUTIONAL: Alert and oriented and responds appropriately to questions. Well-appearing; well-nourished HEAD: Normocephalic; atraumatic EYES: PERRL; Conjunctivae clear, sclerae non-icteric ENT: normal nose; no rhinorrhea; moist mucous membranes; pharynx without lesions noted NECK: Supple without meningismus; non-tender; no cervical lymphadenopathy, no masses CARD: RRR; no murmurs, no clicks, no rubs, no gallops; symmetric distal pulses RESP: Normal chest excursion without splinting or tachypnea; breath sounds clear and equal bilaterally; no wheezes, no rhonchi, no rales ABD/GI: Normal bowel sounds; non-distended; soft, non-tender, no rebound, no guarding; no palpable organomegaly or masses : 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 External genitalia normal. No skin lesions noted. Pelvic Exam: Small amount of dark red blood in the vaginal vault. No purulent discharge. Cervix appears normal. No CMT. No lesions or masses. Uterus normal size and non tender. Right/Left adnexa normal size and mildly tender in the right adnexa. BACK: The back appears normal and is non-tender to palpation, there is no CVA tenderness EXT: Normal ROM in all joints; non-tender to palpation; no cyanosis, no effusions, no edema SKIN: Normal color for age and race; warm; dry; good turgor; no acute lesions noted NEURO: Moves all extremities equally; Motor and sensory function intact PSYCH: The patient's mood and manner are appropriate. Grooming and personal hygiene are appropriate. MDM: 34-year-old female with history of ovarian cyst presenting with right pelvic pain for 3 days, suspect ovarian cyst, unlikely this is torsion pain is been constant for 3 days. She has no tenderness over McBurney's point. No fever. Lab work done in the triage process shows normal WBC count. Patient is not will obtain ultrasound TRAVEL OUTSIDE OF THE [place] IN LAST 30 DAYS: No - Related Data Allergies/Adverse Reactions: Sulfa (Sulfonamide Antibiotics) Allergy (Severe, Verified 02/17/20 20:40) Past Medical History - General Information source: Patient - Social History Smoking Status: Current Every Day Smoker Frequency of alcohol use: None Drug Abuse: None Family History: Reviewed & Not Pertinent - Past Medical History Cardiac Medical History: Denies: Hx Coronary Artery Disease, Hx Heart Attack, Hx Hypertension Pulmonary Medical History: Denies: Hx Asthma, Hx Bronchitis, Hx COPD, Hx Pneumonia Neurological Medical History: Denies: Hx Cerebrovascular Accident, Hx Seizures Renal/ Medical History: Denies: Hx Peritoneal Dialysis Musculoskeletal Medical History: Denies Hx Arthritis Psychiatric Medical History: Reports: Hx Anxiety, Hx Depression - anxiety - Immunizations Immunizations up to date: Yes Hx Diphtheria, Pertussis, Tetanus Vaccination: Yes Physical Exam - Vital signs Vitals: Temp Pulse Resp BP Pulse Ox 97.8 F 83 17 126/70 H 100 02/17/20 18:11 02/17/20 18:11 02/17/20 18:11 02/17/20 18:11 02/17/20 18:11 Course - Re-evaluation Re-evalutation: 02/18/20 04:58 Ultrasound does not show acute abnormal findings in the right pelvis to suggest a cause for the patient's pain she believes she pulled a muscle. Patient is a 2.2 cm left ovarian cyst still. She likely has a small fibroid. She will follow-up with her SALES OPERATIONS ASSISTANT I will place her on anti-inflammatories. I did offer CT imaging to rule out appendicitis but patient does not want that at this time she is afebrile and otherwise has a normal WBC count not suggestive of 3 days of pelvic pain or appendicitis - Vital Signs Vital signs: Temp Pulse Resp BP Pulse Ox 97.8 F 83 17 126/70 H 100 02/17/20 18:11 02/17/20 18:11 02/17/20 18:11 02/17/20 18:11 02/17/20 18:11 - Laboratory Result Diagrams: 02/17/20 21:13 02/17/20 21:13 Laboratory results interpreted by me: 02/17/20 02/17/20 02/17/20 21:04 21:13 21:13 RDW 14.9 H Total Protein 8.5 H Urine Blood LARGE H Discharge - Discharge Clinical Impression: Pelvic pain in female, Ovarian cyst, left, Fibroid Condition: Stable Disposition: HOME, SELF-CARE Additional Instructions: Your ultrasound shows a 2 cm ovarian cyst on the left ovary. This shows a small fibroid in the uterus, this can cause some pain and discomfort and also cause some irregularity in your bleeding. There was no definitive abnormality on the right side to suggest a cause for your pain. Take the anti-inflammatories as prescribed follow-up with your SALES OPERATIONS ASSISTANT for further evaluation and treatment call for appointment. Return to the emergency department for fever greater than 101 focal abdominal pain or worsening condition as discussed Prescriptions: Diclofenac Sodium [Voltaren 50 Mg Tablet.] 50 mg PO BID #20 tablet.dr Referrals: DIO SANCHEZ MD [ACTIVE STAFF] - Follow up as needed
[2020-02-18 04:26] LABS: T.VAGINALIS (WET MOUNT) NO TRICHOMONAS SEEN
[2020-02-18 04:27] LABS: RBCS (WET MOUNT) 4+ RBCS SEEN; WBCS (WET MOUNT) RARE WBCS SEEN; YEAST (WET MOUNT) NO YEAST SEEN
--- NOTE | 2020-02-18 04:49 | RADIOLOGY REPORT (SQ) ---
Ultrasound of the pelvis: 02/18/2020 3:46 AM CDT HISTORY: 34-year-old patient with right sided pelvic pain. TECHNIQUE: Multiple grayscale and color Doppler images of the pelvis were obtained transvaginally. COMPARISON: None available FINDINGS: The uterus measures 8.4 x 4.3 x 3.4 cm. The endometrium measures 3-4 mm in thickness. There is a hypoechoic mass at the anterior aspect of the lower uterine segment measuring at least 7 x 8 x 11 mm. This likely represents a subserosal leiomyoma. No free intraperitoneal fluid is seen within the posterior cul-de-sac. The right ovary measures 3.3 x 1.2 x 1.2 cm. The left ovary measures 3.2 x 2.3 x 1.9 cm. There is a probable physiologic cysts at the left ovary measuring up to 2.2 cm. Some arterial waveforms were obtained from both ovaries. IMPRESSION: No acute sonographic abnormality is seen within the pelvis.
[2020-02-18 05:22] VITALS: BP 116/70
[2020-02-18 05:58] LABS: CHLAM PCR NOT DETECTED (NOT DETECT)
== END 2020-02-18 05:22 | disposition home or self-care (01) ==
LOC: ER 18:04
DX: N83.202 Unspecified ovarian cyst, left side (principal); D25.9 Leiomyoma of uterus, unspecified; R10.2 Pelvic and perineal pain; N93.9 Abnormal uterine and vaginal bleeding, unspecified; R11.0 Nausea; F17.200 Nicotine dependence, unspecified, uncomplicated; Z88.2 Allergy status to sulfonamides
CPT/HCPCS: 99285; 96372; 36415; 87210; 84703; 85025; 80053; 81001; 87491; 87591; 76830; 93976; J1885; S0119